=== PATIENT | female | born 1970 | race Caucasian/White ===

== ENCOUNTER 2017-10-20 19:23 | Emergency (ER) | payer OTHER ==
[~2017-10-20] VITALS: Ht 154.9 cm; Wt 44.3 kg
[2017-10-20 19:31] VITALS: TEMP 36.8; Ht 154.9 cm; Wt 44.3 kg
[2017-10-20] MEDS ORDERED: KETOROLAC TROMETHAMINE 30 MG/ML VIAL IV STA (19:45)
[2017-10-20] MEDS ORDERED: CLINDAMYCIN 600 MG/54 ML D5W IV ONE (19:45)
[2017-10-20] MEDS ORDERED: SODIUM CHLORIDE 0.9% 1000ML 1,000 ML IV STA (19:45)
[2017-10-20] MEDS ORDERED: OPTIRAY 320 IV PRN (20:00)
[2017-10-20 20:18] LABS: BASO % 0.2 %; BASO ABS # 0.04 K/uL (0-0.2); EOS % 0.6 %; EOS ABS # 0.11 K/uL (0-0.5); HEMATOCRIT 40.9 % (37-47); HEMOGLOBIN 14.5 g/dL (12.0-16.0); IG# 0.05 K/uL (0.00-0.02); LYMPH % 9.6 %; LYMPH ABS # 1.72 K/uL (1.2-3.4); MEAN CELL VOLUME 90.1 fL (80-100); MEAN CORPUSCULAR HEMOGLOBIN 31.9 pg (25-34); MEAN CORPUSCULAR HGB CONC 35.5 g/dl (32-36); MEAN PLATELET VOLUME 9.2 fL (7.4-10.4); MONO % 6.3 %; MONO ABS # 1.12 K/uL (0.11-0.59); NEUT ABS # 14.84 K/uL (1.4-6.5); PLATELET COUNT 464 K/uL (130-400); RED CELL DISTRIBUTION WIDTH CV 14.5 % (11.5-14.5); RED CELL DISTRIBUTION WIDTH SD 47.4 fL (36.4-46.3); WHITE BLOOD COUNT 17.88 K/uL (4.8-10.8)
[2017-10-20 20:38] LABS: CALCIUM 8.8 mg/dl (8.5-10.1); CREATININE 0.76 mg/dl (0.60-1.20); POTASSIUM 3.2 mmol/L (3.5-5.1)
--- NOTE | 2017-10-20 21:02 | DIAGNOSTIC IMAGING REPORT ---
CT SOFT TISSUE NECK WITH CT DOSE: 209.30 mGy.cm CLINICAL HISTORY: right lower jaw, facial swelling TECHNIQUE: Helical images were acquired during intravenous administration of 120 cc of Optiray 320. A dose lowering technique was utilized adhering to the principles of ALARA. COMPARISON STUDY: None. FINDINGS: There is mild apical emphysema No thyroid masses are visualized. No salivary gland masses are visualized. There are no pathologically enlarged cervical lymph nodes. No necrotic nodes are evident. There is periventricular soft tissue swelling. There are small fluid collections anterior to the right hemimandible measuring 10 mm and 7 mm respectively. Small soft tissue abscesses are suspected. There is no evidence of airway compromise. No mucosal space masses are visualized. Several dental caries are visualized. There is minor mucosal thickening within the frontal and ethmoid sinuses. IMPRESSION: 1. Perimandibular edema. There are 2 small premandibular soft tissue abscesses anterior to the right medial hemimandible 2. Several dental caries are visualized. 3. No evidence of airway compromise. 4. No evidence of pathologic adenopathy. Electronically signed by: Pete Mcbride M.D. 10/20/2017 9:01 PM Dictated Date/Time: 10/20/2017 8:55 PM
[2017-10-20] MEDS ORDERED: LIDOCAINE 1% BUFFERED INJ 20 ML VIAL INFIL ONE (21:15)
[2017-10-20] MEDS ORDERED: CLIN150C PO (22:42)
--- NOTE | 2017-10-20 22:42 | EMERGENCY ROOM VISIT NOTE ---
History Report prepared by Suleiman: Palak Espinal Under the Supervision of: Dr. Bubba Reinoso M.D. First contact with patient: 19:41 Chief Complaint: FACIAL PAIN/INJURY Stated Complaint: INFECTION IN JAW, SWELLING History of Present Illness The patient is a 46 year old female who presents to the Emergency Room with complaints of worsening facial pain that started 2 days ago. She currently rates her pain a 10/10. The patient states that she woke up 2 days ago with a swollen jaw and pain in her teeth and the right side of her face. She states that the teeth she is having pain in are "almost gone" but that she has not noticed anything draining out of them. The patient also complains of fever and chills. The patient reports having had similar symptoms before, and she states that she is taking Penicillin leftover from the last time she had similar tooth pain. The patient reports she currently does not have dental insurance so she has not yet seen a dentist. Pt denies LOC, headache, diaphoresis, visual changes , neck pain, chest pain, breathing difficulties, nausea, vomiting, abdominal pain, back pain, melena, hematochezia, urinary symptoms, numbness, weakness, lymphadenopathy, rash, or other complaints. Source of History: patient Onset: 2 days ago Position: teeth, jaw Symptom Intensity: 10/10 Quality: other (pain) Timing: worsening Associated Symptoms: + fevers, + chills Review of Systems See HPI for pertinent positives and negatives. A total of ten systems were reviewed and were otherwise negative. Past Medical & Surgical Medical Problems: (1) Kidney stone (2) Pain, dental Family History Cancer Diabetes mellitus FHx: seizures High blood pressure Kidney stone Lung disease Social History Smoking Status: Current Every Day Smoker Drug Use: none Marital Status: Current/Historical Medications Scheduled Clindamycin Hcl (Cleocin), 150 MG PO QID Allergies Coded Allergies: Amoxicillin (Verified Allergy, Intermediate, hives, 02/19/15) Diazepam (Verified Allergy, Unknown, SWELLING/RASH, 02/19/15) Physical Exam Vital Signs Date Time Temp Pulse Resp B/P (MAP) Pulse Ox O2 Delivery O2 Flow Rate FiO2 10/20/17 23:05 80 18 143/89 98 10/20/17 21:01 88 16 131/81 99 Room Air 10/20/17 19:55 97 Room Air 10/20/17 19:31 36.8 113 18 139/81 97 Room Air Physical Exam GENERAL: Awake, alert, well-appearing, in no distress HENT: Normocephalic, atraumatic. Oropharynx unremarkable. Large pimple with redness and induration in midline of chin. Swelling extending posteriorly along right mandible. Poor dentition. EYES: Normal conjunctiva. Sclera non-icteric. NECK: Supple. No nuchal rigidity. FROM. No masses. RESPIRATORY: Clear to auscultation. No wheezes. No rales. Normal respiratory effort. CARDIAC: Normal rate. Normal rhythm. No murmurs. No rubs. Extremities warm and well perfused. Pulses equal. No JVD. GI: Soft, non-distended. No tenderness to palpation. No rebound or guarding. No masses. RECTAL: Deferred. MUSCULOSKELETAL: Atraumatic. Chest examination reveals no tenderness. The back is symmetrical on inspection without obvious abnormality. There is no CVA tenderness to palpation. No joint edema. LOWER EXTREMITIES: Calves are equal size bilaterally and non-tender. No edema. No discoloration. NEURO: Normal sensorium. No sensory or motor deficits noted. SKIN: No rash or jaundice noted. Medical Decision & Procedures ER Provider Diagnostic Interpretation: Radiology results as stated below per my review and radiologist interpretation: CT SOFT TISSUE NECK WITH CT DOSE: 209.30 mGy.cm CLINICAL HISTORY: right lower jaw, facial swelling TECHNIQUE: Helical images were acquired during intravenous administration of 120 cc of Optiray 320. A dose lowering technique was utilized adhering to the principles of ALARA. COMPARISON STUDY: None. FINDINGS: There is mild apical emphysema No thyroid masses are visualized. No salivary gland masses are visualized. There are no pathologically enlarged cervical lymph nodes. No necrotic nodes are evident. There is periventricular soft tissue swelling. There are small fluid collections anterior to the right hemimandible measuring 10 mm and 7 mm respectively. Small soft tissue abscesses are suspected. There is no evidence of airway compromise. No mucosal space masses are visualized. Several dental caries are visualized. There is minor mucosal thickening within the frontal and ethmoid sinuses. IMPRESSION: 1. Perimandibular edema. There are 2 small premandibular soft tissue abscesses anterior to the right medial hemimandible 2. Several dental caries are visualized. 3. No evidence of airway compromise. 4. No evidence of pathologic adenopathy. Electronically signed by: Pete Mcbride M.D. 10/20/2017 9:01 PM Dictated Date/Time: 10/20/2017 8:55 PM Laboratory Results 10/20/17 19:58 Red Blood Count 4.54, Mean Corpuscular Volume 90.1, Mean Corpuscular Hemoglobin 31.9, Mean Corpuscular Hemoglobin Concent 35.5, Mean Platelet Volume 9.2, Neutrophils (%) (Auto) 83.0, Lymphocytes (%) (Auto) 9.6, Monocytes (%) (Auto) 6.3, Eosinophils (%) (Auto) 0.6, Basophils (%) (Auto) 0.2, Neutrophils # (Auto) 14.84, Lymphocytes # (Auto) 1.72, Monocytes # (Auto) 1.12, Eosinophils # (Auto) 0.11, Basophils # (Auto) 0.04 10/20/17 19:58 Test 10/20/17 19:58 White Blood Count 17.88 K/uL (4.8-10.8) Red Blood Count 4.54 M/uL (4.2-5.4) Hemoglobin 14.5 g/dL (12.0-16.0) Hematocrit 40.9 % (37-47) Mean Corpuscular Volume 90.1 fL (80-100) Mean Corpuscular Hemoglobin 31.9 pg (25-34) Mean Corpuscular Hemoglobin Concent 35.5 g/dl (32-36) Platelet Count 464 K/uL (130-400) Mean Platelet Volume 9.2 fL (7.4-10.4) Neutrophils (%) (Auto) 83.0 % Lymphocytes (%) (Auto) 9.6 % Monocytes (%) (Auto) 6.3 % Eosinophils (%) (Auto) 0.6 % Basophils (%) (Auto) 0.2 % Neutrophils # (Auto) 14.84 K/uL (1.4-6.5) Lymphocytes # (Auto) 1.72 K/uL (1.2-3.4) Monocytes # (Auto) 1.12 K/uL (0.11-0.59) Eosinophils # (Auto) 0.11 K/uL (0-0.5) Basophils # (Auto) 0.04 K/uL (0-0.2) RDW Standard Deviation 47.4 fL (36.4-46.3) RDW Coefficient of Variation 14.5 % (11.5-14.5) Immature Granulocyte % (Auto) 0.3 % Immature Granulocyte # (Auto) 0.05 K/uL (0.00-0.02) Anion Gap 7.0 mmol/L (3-11) Est Creatinine Clear Calc Drug Dose 65.4 ml/min Estimated GFR () 109.8 Estimated GFR (Non- 94.7 BUN/Creatinine Ratio 11.0 (10-20) Calcium Level 8.8 mg/dl (8.5-10.1) Laboratory results reviewed by me Medications Administered Medications (Trade) Dose Ordered Sig/Dejon Route Start Time Stop Time Status Last Admin Dose Admin Sodium Chloride 1,000 ml @ 999 mls/hr Q1H1M STAT IV 10/20/17 19:45 10/20/17 20:45 DC 10/20/17 19:58 999 MLS/HR Clindamycin Phosphate (Cleocin 600mg/ 54ml D5W) 600 mg ONE ONCE IV 10/20/17 19:45 10/20/17 19:48 DC 10/20/17 20:04 600 MG Ketorolac Tromethamine (Toradol Inj) 10 mg NOW STAT IV 10/20/17 19:45 10/20/17 19:49 DC 10/20/17 19:58 10 MG Clindamycin HCl (Cleocin Cap) 150 mg ONE ONCE PO 10/20/17 22:45 10/20/17 22:46 DC 10/20/17 23:01 150 MG Oxycodone HCl (Roxicodone Immediate Rel 5MG Home Pack) 1 homepack UD ONCE PO 10/20/17 22:45 10/20/17 22:46 DC 10/20/17 23:01 1 HOMEPACK Procedure Incision & Drainage Indication: Abscess. Location: Face. Verbal consent was obtained after the risks and benefits were explained, including but not limited to bleeding, scarring, infection, pain, and bone/joint /nerve damage. At this time, the risks of the procedure are less than the risks of NOT performing the procedure. A time out was taken and the correct patient and site identified. The skin was prepped with betadine and a sterile field set. The wound was anesthetized with 2 ml of 1% lidocaine without epinephrine. The abscess cavity was entered with a number 11 blade and pus material expressed. Copious irrigation was performed using saline. The wound was explored for foreign bodies and none found. Debridement was not performed. Packing placed and a sterile dressing applied. Detailed wound care instructions and signs and symptoms of worsening infection reviewed with the patient. No complications and the patient tolerated the procedure well. ED Course 1944: The patient was evaluated in room C2B. A complete history and physical exam was performed. Ordered Toradol Inj 10 mg IV, Clindamycin Phosphate 600 mg IV, Sodium Chloride 1000 ml @ 999 mls/hr IV. 2121: I checked on her patient and updated her on her results. The patient is resting and stable. 2201: I performed an incision and drainage procedure on the patient's facial abscess. 2244: Ordered Oxycodone HCl 1 homepack PO, Cleocin Cap 150 mg PO. 2246: I reevaluated the patient. Discussed results and discharge instructions: She verbalized understanding and agreement. The patient is ready for discharge. Medical Decision Prior records reviewed and summarized as above. Triage Nursing notes reviewed and agree them. The patient's history was concerning for swelling and redness of the skin. Differential diagnosis: Etiologies such as cellulitis, necrotizing fasciitis, abscess, MRSA infection, dermatitis, as well as others were entertained.. Physical examination: The physical examination was consistent with cellulitis but there were concerns of possible abscess. ER treatment provided: IV Toradol IV normal saline IV clindamycin Incision and drainage On reassessment the patient felt better. Diagnostics interpreted by me: The labs revealed a significant leukocytosis. Chemistry panel unremarkable. Imaging studies: CT scan as above The patient has a small facial abscess with facial cellulitis. She notes having a pimple and she was picking at it unsuccessfully. Drained as above.. She will be prescribed clindamycin, oxycodone, and will need to follow-up with her primary clinic. Wound instructions were outlined. The patient felt comfortable with the plan. By the evaluation outlined above other emergent etiologies such as those listed in the differential, as well as others, were deemed relatively unlikely. The patient was educated about the findings as listed above. All questions were answered and the patient was pleased with the treatment. Return instructions were outlined and the patient was discharged in stable condition. The patient was referred to her PCP for follow-up for a recheck of the current condition. Medication Reconcilliation Current Medication List: was personally reviewed by me Blood Pressure Screening Patient's blood pressure: Normal blood pressure Blood pressure disposition: Did not require urgent referral Impression Primary Impression: Facial abscess Additional Impression: Facial cellulitis Scribe Attestation The scribe's documentation has been prepared under my direction and personally reviewed by me in its entirety. I confirm that the note above accurately reflects all work, treatment, procedures, and medical decision making performed by me. Departure Information Dispostion Home / Self-Care Prescriptions Clindamycin Hcl (CLEOCIN) 150 Mg Cap 150 MG PO QID, #39 CAP Prov: Bubba Reinoso MD 10/20/17 Referrals No Doctor, Assigned (PCP) Forms HOME CARE DOCUMENTATION FORM, IMPORTANT VISIT INFORMATION Patient Instructions My [facility] Additional Instructions Clindamycin 150mg: Take two pills four times daily for 10 days for your infection. All antibiotics can cause diarrhea. If this occurs and you feel worse or it does not resolve in 1-2 days follow up with your doctor or return to the Emergency Department as this could be signs of serious underlying problems. Any medication can cause an allergic reaction, stop the pills immediately and return to the ER for rash, hives, breathing difficulties, or swelling. Oxycodone 5 mg: Take 1 pill every 6 hours as needed for pain. Avoid additional Acetaminophen/Tylenol, alcohol, operating machinery or dangerous equipment, working on ladders or roofs, DRIVING, or situations where being under the influence may be dangerous. It is recommended to use a stool softener such as Colace, 100mg twice daily while taking this medication to avoid constipation. Ibuprofen(Motrin, Advil) may be used for fever or pain. Use 600mg every six hours as needed. Take with food. Avoid using more than 2400mg in a 24 hour period. Do not use 2400mg per day for more than three consecutive days without physician direction. Prolonged inappropriate use can lead to stomach upset or ulcers. (AND/OR) Acetaminophen(Tylenol) may be used for fever or pain. Use 1000mg every six hours as needed. Avoid using more than 3000mg in a 24 hour period. Warm compresses to the affected area 4 times daily for 15-20 minutes. Remove the packing tomorrow evening. Keep clean with soap and water daily. Bacitracin and Band-Aid to the wound until healed. Rest and drink plenty of fluids. Continue current medications. Return to the ER for severe pain, persistent fevers, spreading redness, or any worsening of your condition. Follow up with your primary physician within 2-3 days for a recheck of the current condition. Problem Qualifiers
[2017-10-20] MEDS ORDERED: CLINDAMYCIN HCL 150 MG CAP PO ONE (22:45)
[2017-10-20] MEDS ORDERED: OXYCODONE IR HOME PACK PO ONE (22:45)
[2017-10-20 23:05] VITALS: BP 143/89; PULSE 80; O2SAT 98
== END 2017-10-20 23:05 | disposition home or self-care (01) ==
LOC: C.EDB 19:24 → C.EDC 23:05
DX: L02.01 Cutaneous abscess of face (principal); L03.211 Cellulitis of face; F17.200 Nicotine dependence, unspecified, uncomplicated; Z83.3 Family history of diabetes mellitus; Z88.1 Allergy status to other antibiotic agents; Z88.8 Allergy status to other drugs, medicaments and biological substances